=== PATIENT | female | born 1955 | race Caucasian/White ===

== ENCOUNTER 2021-08-20 05:46 | Inpatient (IN) ==
--- NOTE | 2021-07-18 15:32 | PAT Medication Instructions ---
Medication Instructions Date of Service July 18, 2021 Home Medications Elderberry Extract Otc 1 tab PO QPM acetaminophen 325 mg capsule (Tylenol) 650 mg PO BID PRN apixaban 5 mg tablet (Eliquis) 5 mg PO BID carvedilol 3.125 mg tablet 3.125 mg PO BID cholecalciferol (vitamin D3) 125 mcg (5,000 unit) tablet (Vitamin D3) 125 mcg PO QAM diphenhydramine HCl 25 mg tablet (Benadryl Allergy) 25 mg PO DIRECTED PRN fluticasone propionate 50 mcg/actuation nasal spray,suspension 1 spray INTRANASAL Q12H PRN levothyroxine 112 mcg capsule 112 mcg PO QAM lisinopril 10 mg tablet 10 mg PO QAM lisinopril 20 mg-hydrochlorothiazide 25 mg tablet 1 tab PO QAM multivitamin 1 tab PO QPM pantoprazole 20 mg tablet,delayed release 40 mg PO QAM potassium chloride 10 mEq tablet,extended release 10 meq PO 3XWK ASK your prescriber and surgeon apixaban 5 mg tablet (Eliquis) 5 mg PO BID (in order for spinal anesthesia, apixaban/eliquis needs to be stopped 72 hours/3 days before surgery. Please check if okay with doctor that prescribes this to you) STOP taking 2 weeks before surgery (or as soon as possible if surgery is within 2 weeks) Elderberry Extract Otc 1 tab PO QPM DO NOT take the morning of surgery cholecalciferol (vitamin D3) 125 mcg (5,000 unit) tablet (Vitamin D3) 125 mcg PO QAM diphenhydramine HCl 25 mg tablet (Benadryl Allergy) 25 mg PO DIRECTED PRN lisinopril 10 mg tablet 10 mg PO QAM lisinopril 20 mg-hydrochlorothiazide 25 mg tablet 1 tab PO QAM potassium chloride 10 mEq tablet,extended release 10 meq PO 3XWK Take morning of surgery With a small sip of water, OTHERWISE NOTHING TO EAT OR DRINK AFTER MIDNIGHT: acetaminophen 325 mg capsule (Tylenol) 650 mg PO BID PRN (okay to take up to 4 hours prior to surgery if needed) carvedilol 3.125 mg tablet 3.125 mg PO BID fluticasone propionate 50 mcg/actuation nasal spray,suspension 1 spray INTRANASAL Q12H PRN (if needed) levothyroxine 112 mcg capsule 112 mcg PO QAM pantoprazole 20 mg tablet,delayed release 40 mg PO QAM Take evening before surgery acetaminophen 325 mg capsule (Tylenol) 650 mg PO BID PRN (if needed) carvedilol 3.125 mg tablet 3.125 mg PO BID diphenhydramine HCl 25 mg tablet (Benadryl Allergy) 25 mg PO DIRECTED PRN (if needed) fluticasone propionate 50 mcg/actuation nasal spray,suspension 1 spray INTRANASAL Q12H PRN (if needed) multivitamin 1 tab PO QPM Other Notes If you have any questions please call us at [phone] or [phone] or [phone] or [phone]
--- NOTE | 2021-07-22 13:04 | Anesthesiology Consultation ---
Date of Service July 22, 2021 History Surgery Operation Date: 08/20/21 08:05 Proposed Procedures p Left Total Knee Arthroplasty - Chetan Rivera DO Height/Weight Height: 5 ft 4 in Weight: 106.594 kg Allergies Allergy/AdvReac Type Severity Reaction Status Date / Time egg Allergy Severe Headache Verified 07/17/21 16:10 beet Allergy Unknown UNKNOWN-ALLERGY Verified 07/17/21 16:12 TESTING fish derived Allergy Unknown UNKNOWN Verified 07/17/21 16:12 -ALLERGY TESTING moxifloxacin [From Avelox] Allergy Unknown Hives Verified 07/17/21 16:05 orange Allergy Unknown Unknown-ALLERGY Verified 07/17/21 16:12 TESTING Penicillins Allergy Unknown A Verified 07/17/21 16:06 CHILD-UNKNOWN morphine AdvReac Severe NAUSEA AND Verified 07/17/21 16:12 VOMITING Sulfa (Sulfonamide AdvReac Unknown NAUSEA-GI Verified 07/17/21 16:06 Antibiotics) UPSET Medications Home Medications Medication Instructions Recorded Confirmed Last Taken Elderberry Extract Otc 1 tab PO QPM 07/17/21 07/17/21 Unknown acetaminophen 325 mg capsule 650 mg PO BID PRN 07/17/21 07/17/21 Unknown (Tylenol) apixaban 5 mg tablet (Eliquis) 5 mg PO BID 07/17/21 07/17/21 Unknown carvedilol 3.125 mg tablet 3.125 mg PO BID 07/17/21 07/17/21 Unknown cholecalciferol (vitamin D3) 125 125 mcg PO QAM 07/17/21 07/17/21 Unknown mcg (5,000 unit) tablet (Vitamin D3) diphenhydramine HCl 25 mg tablet 25 mg PO DIRECTED PRN 07/17/21 07/17/21 Unknown (Benadryl Allergy) fluticasone propionate 50 1 spray INTRANASAL Q12H PRN 07/17/21 07/17/21 Unknown mcg/actuation nasal spray,suspension levothyroxine 112 mcg capsule 112 mcg PO QAM 07/17/21 07/17/21 Unknown lisinopril 10 mg tablet 10 mg PO QAM 07/17/21 07/17/21 Unknown lisinopril 20 1 tab PO QAM 07/17/21 07/17/21 Unknown mg-hydrochlorothiazide 25 mg tablet multivitamin 1 tab PO QPM 07/17/21 07/17/21 Unknown pantoprazole 20 mg tablet,delayed 40 mg PO QAM 07/17/21 07/17/21 Unknown release potassium chloride 10 mEq 10 meq PO 3XWK 07/17/21 07/17/21 Unknown tablet,extended release Past Medical History Medical History Anxiety Atrial fibrillation ON ELIQUIS-F/U DR [facility] Depression GERD (gastroesophageal reflux disease) Hiatal hernia Hypertension Hypothyroidism Patient denies h/o stroke, seizures, heart attack, heart failure, DM, blood clots or blood transfusions. Past Family History Family History Mother Family history of diabetes mellitus Brother Family history of diabetes mellitus Brother Family history of diabetes mellitus Brother Family history of diabetes mellitus Past Surgical History Surgical History History of section X 2 History of cholecystectomy History of colonoscopy 2020 History of esophagogastroduodenoscopy (EGD) History of hysterectomy OVARIES REMAINED History of knee surgery LEFT History of lung surgery NODULES-DX'D SARCOIDOSIS Hx of oophorectomy LEFT Nausea and vomiting after administration of anesthetic agent SLOW TO WAKE UP Status post blepharoplasty of both eyes Social History Smoking Status: Never smoker Do You Dip or Chew Tobacco: No Hx Alcohol Use: No Hx Substance Use: No Review of Systems Patient denies chest pain, shortness of breath, dyspnea on exertion, snoring, witnessed apneas, reflux, fever, chills, cough, wheezing, or palpitations. Physical Exam Vital Signs Vitals BP P TEMP SP02 % on RA RESP Physical Full cervical extension range of motion without pain Full TMJ range of motion TMD __ finger breaths Mallampati Score ___ Dentition: intact, Lungs: normal respiratory effort. Clear throughout to auscultation, no adventitious breath sounds Cardiac: regular rate and rhythm, no murmurs noted Carotid arteries: negative bruit bilat Extremities: no distal extremity edema
--- NOTE | 2021-07-22 13:26 | Anesthesiology Consultation ---
Date of Service July 22, 2021 Assessment & Plan (1) Encounter for pre-operative examination: - COVID screening: Per assessment on 07/22: No known COVID-19 positive contacts or current COVID-19 related symptoms. Travel screen negative. Patient [place]. Surgeon arranging preop COVID testing. Awaiting results. - Cardiology office visit (06/05/21): "Patient referred back to our office for chronic atrial fibrillation. She is not anticoagulated (has been reluctant to start a blood thinner).. Le remains in atrial fibrillation with a controlled ventricular response by ECG in the office today. She is asymptomatic. Her CHADS-VASC score is 2 for age 65 and hypertension. Oral anticoagulation is therefore warranted and strongly recommended for stroke risk reduction. She has been very reluctant to start OAC in the past. We discussed the risks and benefits again in detail today. She is willing to try Eliquis 5 mg twice daily.. If she remains compliant with oral anticoagulation, we could consider cardioversion at some point. We will consider this at a later date. Continue carvedilol for rate control.. Of note, she is to have knee surgery in August proceed from a cardiac standpoint. The Eliquis can be held 48- 72 hours prior to the operation." Patient subsequently seen at [facility] 07/22/21. She was advised to hold Eliquis 72 hours prior to surgery in order for spinal anesthesia. Patient voiced understanding. - Anxious: Does not want to hear anything perioperatively. Patient requests deeper sedation if possible.* Chart Review Chart Review: Acceptable Risk for Surgery and Patient seen in Pre Admission Testing Teaching & Discussion Pre-Anesthesia Teaching/Discussion Notes: Instructed NPO after midnight before surgery,except medications with 15 cc of water. Medication instructions provided according to the [facility] guidelines. History Surgery Operation Date: 08/20/21 08:05 Proposed Procedures p Left Total Knee Arthroplasty - Chetan Rivera DO Height/Weight Height: 5 ft 4 in Weight: 110 kg Allergies Allergy/AdvReac Type Severity Reaction Status Date / Time beet Allergy Unknown Per Verified 07/22/21 13:20 allergy testing fish derived Allergy Unknown Per Verified 07/22/21 13:20 allergy testing moxifloxacin [From Avelox] Allergy Unknown Hives Verified 07/17/21 16:05 orange Allergy Unknown Per Verified 07/22/21 13:20 allergy testing Penicillins Allergy Unknown As child, Verified 07/22/21 13:20 unknown reaction egg AdvReac Severe Headache Verified 07/22/21 13:20 morphine AdvReac Severe N/V Verified 07/22/21 13:20 Sulfa (Sulfonamide AdvReac Unknown Nausea, GI Verified 07/22/21 13:20 Antibiotics) upset Medications Home Medications Medication Instructions Recorded Confirmed Last Taken Elderberry Extract Otc 1 tab PO QPM 07/17/21 07/17/21 Unknown acetaminophen 325 mg capsule 650 mg PO BID PRN 07/17/21 07/17/21 Unknown (Tylenol) apixaban 5 mg tablet (Eliquis) 5 mg PO BID 07/17/21 07/17/21 Unknown carvedilol 3.125 mg tablet 3.125 mg PO BID 07/17/21 07/17/21 Unknown cholecalciferol (vitamin D3) 125 125 mcg PO QAM 07/17/21 07/17/21 Unknown mcg (5,000 unit) tablet (Vitamin D3) diphenhydramine HCl 25 mg tablet 25 mg PO DIRECTED PRN 07/17/21 07/17/21 Unknown (Benadryl Allergy) fluticasone propionate 50 1 spray INTRANASAL Q12H PRN 07/17/21 07/17/21 Unknown mcg/actuation nasal spray,suspension levothyroxine 112 mcg capsule 112 mcg PO QAM 07/17/21 07/17/21 Unknown lisinopril 10 mg tablet 10 mg PO QAM 07/17/21 07/17/21 Unknown lisinopril 20 1 tab PO QAM 07/17/21 07/17/21 Unknown mg-hydrochlorothiazide 25 mg tablet multivitamin 1 tab PO QPM 07/17/21 07/17/21 Unknown pantoprazole 20 mg tablet,delayed 40 mg PO QAM 07/17/21 07/17/21 Unknown release potassium chloride 10 mEq 10 meq PO 3XWK 07/17/21 07/17/21 Unknown tablet,extended release Past Medical History Medical History Anxiety Atrial fibrillation on Eliquis Follows with Dr. Ferreira ([facility]) Depression GERD (gastroesophageal reflux disease) Controlled Hiatal hernia Hypertension Hypothyroidism Sarcoidosis Pt reports no evidence of active disease, incidental finding Exercise / Class Metabolic Activity III < 4 Walking/Shop/Light housework Past Family History Family History Mother Family history of diabetes mellitus Brother Family history of diabetes mellitus Brother Family history of diabetes mellitus Brother Family history of diabetes mellitus Past Surgical History Surgical History History of section x2 History of cholecystectomy History of colonoscopy History of esophagogastroduodenoscopy (EGD) History of hysterectomy History of knee surgery LEFT History of lung surgery NODULES-DX'D SARCOIDOSIS Hx of oophorectomy LEFT Status post blepharoplasty of both eyes Past Anesthesia History No Family Hx of Anesthesia Complications and Other ("slow to wake") History of PONV History of PONV (No issues when most recent colonoscopy done*) and Hx of Motion Sickness Social History Smoking Status: Never smoker Do You Dip or Chew Tobacco: No Hx Alcohol Use: No Hx Substance Use: No Review of Systems Patient denies chest pain, shortness of breath, fever, chills, cough, wheezing, palpitations. Physical Exam Vital Signs VITALS BP 147/93 P 96 TEMP 98.3 SP02 96%RA RESP 18 PHYSICAL Full cervical extension range of motion. Full TMJ range of motion. TMD 3.5 finger breaths Mallampati Score 3 Dentition: upper partial Lungs: clear throughout to auscultation Cardiac: regular rate, irregular rhythm, no murmurs noted Spine: normal Carotid arteries: negative bruit Extremities: no edema Lab Results Anesthesia Preop Results Results Anesthesia Widget: WBC 8.60 K/uL (4.8-10.8) 07/22/21 Hgb 17.1 g/dL (12.0-16.0) H 07/22/21 Hct 48.7 % (37-47) H 07/22/21 Plt 164 K/uL (130-400) 07/22/21 PT 12.4 Seconds (9.0-12.0) H 07/22/21 PTT 31.0 Seconds (21.0-31.0) 07/22/21 INR 1.2 (0.9-1.1) H 07/22/21 HA1c 5.5 % (4.5-5.6) 07/22/21 Urine Color Yellow 07/22/21 Urine Appearance Clear (Clear) 07/22/21 Urine pH 7.5 (4.5-7.5) 07/22/21 Urine Specific [place] 1.011 (1.000-1.030) 07/22/21 Urine Protein Negative (Negative) 07/22/21 Urine Glucose (UA) Negative (Negative) 07/22/21 Urine Ketones Negative (Negative) 07/22/21 Urine Blood Negative (Negative) 07/22/21 Urine Nitrite Negative (Negative) 07/22/21 Urine Bilirubin Negative (Negative) 07/22/21 Urine Urobilinogen Negative (Negative) 07/22/21 Urine Leukocyte Esterase Negative (Negative) 07/22/21 Blood Type O Positive 07/22/21 Antibody Screen NEGATIVE 07/22/21 Testing Laboratory Results *Mildly elevated PT/INR > pt taking Eliquis 07/09/21 SODIUM 137 POTASSIUM 3.6 CHLORIDE 100 CO2 31.9 BUN 7.6 CREATININE 0.76 GLUCOSE 105 Electrocardiogram Date: 06/05/21 A. fib at 94bpm. Old anterior infarct. Chest X-Ray Date: 07/22/21 Findings: + NAD Echocardiogram Date: 05/26/18 EF 56%. Borderline LVH. No regional motion abnormality. Degenerative mitral and aortic valve disease without significant stenosis or regurgitation. Atrial fibrillation. LAE. IVC dilation consistent with volume overload.
--- NOTE | 2021-08-04 08:45 | History & Physical Report ---
Date of Service August 04, 2021 date of surgery: 08/20/21 Procedure: Left Total Knee Arthroplasty Surgeon: Chetan Rivera Assessment & Plan (1) Arthritis of knee, left: Plan: Further care discussed with patient and at this point in time has failed conservative measures and would like to proceed with a left total knee replacement. Plan on discharge will be home with home health physical therapy. DVT prophylaxiswith TEDs, SCDs and will resume her Eliquis post op. Patient will have follow up appointment in our office two weeks post op for staple/suture removal and re-evaluation. Patient otherwise has no other questions or concerns. will need cardiac clearance prior to her surgery. The risks and benefits have been discussed including, but not limited to, risk of infection, nerve injury, stiffness, loss of motion, failure to improve, etc. Reasonable outcomes and options of treatment were discussed. An explanation of appropriate alternatives to the procedure that may be advantageous were discussed and their risks and benefits, as well as the risks and benefits of not proceeding with treatment. I offered to answer any additional inquiries concerning the treatment involved. All the patient's questions were answered. The patient is agreeable, understanding of the treatment plan and alternatives, and wishes to proceed with the treatment plan. History of Present Illness Chief Complaint: left knee pain Primary Care Provider: Juany Catalan MD Le is a 66 year old female who complains of left knee pain, presents for pre-op evaluation prior to a left total knee replacement by Dr Rivera at [facility]. she complains of pain, crepitus, decreased range of motion, instability and stiffness in her left knee. Currently the patient states that the symptoms are moderate-severe and rated as 8/10. The pain is described as aching, sharp and throbbing. Her symptoms are aggravated by ascending stairs, daily activities, first steps while awake walking. she is unable to take NSAIDs due to being on anticoagulants. she has been treated with previous visco and cortisone injections in the past without much relief. Allergies Allergy/AdvReac Type Severity Reaction Status Date / Time beet Allergy Unknown Per Verified 07/22/21 13:20 allergy testing fish derived Allergy Unknown Per Verified 07/22/21 13:20 allergy testing moxifloxacin [From Avelox] Allergy Unknown Hives Verified 07/17/21 16:05 orange Allergy Unknown Per Verified 07/22/21 13:20 allergy testing Penicillins Allergy Unknown As child, Verified 07/22/21 13:20 unknown reaction egg AdvReac Severe Headache Verified 07/22/21 13:20 morphine AdvReac Severe N/V Verified 07/22/21 13:20 Sulfa (Sulfonamide AdvReac Unknown Nausea, GI Verified 07/22/21 13:20 Antibiotics) upset Home Medications Medication Instructions Recorded Confirmed Type Elderberry Extract Otc 1 tab PO QPM 07/17/21 07/17/21 History acetaminophen 325 mg capsule 650 mg PO BID PRN 07/17/21 07/17/21 History (Tylenol) apixaban 5 mg tablet (Eliquis) 5 mg PO BID 07/17/21 07/17/21 History carvedilol 3.125 mg tablet 3.125 mg PO BID 07/17/21 07/17/21 History cholecalciferol (vitamin D3) 125 125 mcg PO QAM 07/17/21 07/17/21 History mcg (5,000 unit) tablet (Vitamin D3) diphenhydramine HCl 25 mg tablet 25 mg PO DIRECTED PRN 07/17/21 07/17/21 History (Benadryl Allergy) fluticasone propionate 50 1 spray INTRANASAL Q12H PRN 07/17/21 07/17/21 History mcg/actuation nasal spray,suspension levothyroxine 112 mcg capsule 112 mcg PO QAM 07/17/21 07/17/21 History lisinopril 10 mg tablet 10 mg PO QAM 07/17/21 07/17/21 History lisinopril 20 1 tab PO QAM 07/17/21 07/17/21 History mg-hydrochlorothiazide 25 mg tablet multivitamin 1 tab PO QPM 07/17/21 07/17/21 History pantoprazole 20 mg tablet,delayed 40 mg PO QAM 07/17/21 07/17/21 History release potassium chloride 10 mEq 10 meq PO 3XWK 07/17/21 07/17/21 History tablet,extended release Past Med/Surg History Medical History Anxiety Atrial fibrillation on Eliquis Follows with Dr. Ferreira ([facility]) Depression GERD (gastroesophageal reflux disease) Controlled Hiatal hernia Hypertension Hypothyroidism Sarcoidosis Pt reports no evidence of active disease, incidental finding Surgical History History of section x2 History of cholecystectomy History of colonoscopy History of esophagogastroduodenoscopy (EGD) History of hysterectomy History of knee surgery LEFT History of lung surgery NODULES-DX'D SARCOIDOSIS Hx of oophorectomy LEFT Status post blepharoplasty of both eyes Family History Mother Family history of diabetes mellitus Brother Family history of diabetes mellitus Brother Family history of diabetes mellitus Brother Family history of diabetes mellitus Social History Smoking Status: Never smoker Second Hand Exposure: Yes (FATHER SMOKED); Hx Alcohol Use: No Hx Substance Use: No Preferred Language: Macedonian Communication Ability: Effective 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 Required: No Beliefs That Will Affect Care: None Current Living Situation: Spouse current occupational status: retired Feels Safe at Home: Yes Assistive Devices: Cane, Denture - Upper and Glasses Review of Systems Review of Systems: All systems reviewed & are unremarkable except as noted in HPI & below Constitutional: no fever, no chills and no sweats Respiratory: no cough and no dyspnea Cardiovascular: no chest pain, no dyspnea and no orthopnea Gastrointestinal: no abdominal pain, no nausea and no vomiting Musculoskeletal: as per Subjective / HPI Physical Exam Physical Exam: HT: 5ft 4in WT: 110kg BP: 126/72 Constitutional: WD/WN, vitals as above no acute distress Respiratory: normal respiratory effort, lungs clear to auscultation no respiratory distress, no labored breathing and does not use accessory muscles Cardiovascular: Rate/Rhythm: + irregularly irregular Gastrointestinal (Abdomen): normal bowel sounds, soft, nontender, no hepatosplenomegaly Musculoskeletal: Knee: + knee abnormal to inspection (LEFT KNEE: ), + effusion (+1 effusion), + limited ROM of knee (ROM 0/3/110), + knee ROM with crepitation, + joint line tenderness (medial joint line) and + Gm's sign positive; no deformity, no skin erythema, no ecchymosis, no valgus laxity, no varus laxity, anterior drawer test negative, Irish's sign negative and pivot shift test negative Results & Data Results & Data ([facility]) Diagnostic Findings Left Knee X-ray: left knee series confirm advanced degenerative changes to the left knee, greatest medial compartments and patellofemoral joint, showing joint space narrowing, osteophyte formation and subchondral sclerosis. no acute bony pathology noted.
[2021-08-20] MEDS ORDERED: FAMOTIDINE 20 MG TAB PO SCH (06:00)
[2021-08-20] MEDS ORDERED: GABAPENTIN 300 MG CAP PO SCH (06:00)
[2021-08-20] MEDS ORDERED: TRANEXAMIC ACID 1,000 MG **IV Pre-op IV SCH (06:00)
[2021-08-20] MEDS ORDERED: TRANEXAMIC ACID 1,000 MG **IV Intra-op IV SCH (06:00)
[2021-08-20] MEDS ORDERED: ROPIVACAINE 0.5% HCL/PF 150 MG, BUPIVACAINE 0.75% MPF 20 ML, EPINEPHrine 30MG/30ML (OR ... INSTIL SCH (06:00)
[2021-08-20] MEDS ORDERED: dexAMETHasone 4 MG TAB PO SCH (06:00)
[2021-08-20] MEDS ORDERED: ACETAMINOPHEN 500 MG TAB PO SCH (06:00)
[2021-08-20] MEDS ORDERED: METOCLOPRAMIDE HCL 10 MG TABLET PO SCH (06:00)
[2021-08-20] MEDS ORDERED: VANCOMYCIN HCL 1,750 MG in SODIUM CHLORIDE 0.9% 500 ML IV SCH (06:00)
[2021-08-20] MEDS ORDERED: LR 500ML BOLUS, THEN 15ML/HR IV SCH (06:00)
[2021-08-20] MEDS ORDERED: PROPOFOL IV EMULSION 10 MG/ML 20 ML VIAL IV ONE (06:30)
[2021-08-20] MEDS ORDERED: BUPIVACAINE 0.25% 30 ML VIAL ONE (06:30)
[2021-08-20] MEDS ORDERED: ONDANSETRON INJ 2 MG/ML 2 ML VIAL ONE (06:30)
[2021-08-20] MEDS ORDERED: MIDAZOLAM HCL 1 MG/ML 2ML VIAL ONE (06:30)
[2021-08-20] MEDS ORDERED: fentaNYL citrate 100 MCG/2 ML VIAL ONE (06:30)
[2021-08-20] MEDS ORDERED: BUPIVACAINE 0.5 % 5 MG/1 ML PF 10ML VIAL ONE (06:30)
[2021-08-20] MEDS ORDERED: fentaNYL citrate 100 MCG/2 ML VIAL IV PRN (06:45)
[2021-08-20] MEDS ORDERED: ePHEDrine sulfate 50 MG/ML AMP IV PRN (06:45)
[2021-08-20] MEDS ORDERED: ONDANSETRON INJ 2 MG/ML 2 ML VIAL IV PRN ×2 (06:45→12:42)
[2021-08-20] MEDS ORDERED: ATROPINE SULFATE 0.1 MG/ML 10ML SYR IV PRN (06:45)
--- NOTE | 2021-08-20 07:13 | History & Physical Bridge Note ---
Date of Service August 20, 2021 History & Physical Bridge Note I have examined the patient, reviewed the History & Physical and in the interval since the performance of the History & Physical I have noted the following changes of clinical significance: no changes noted
[2021-08-20] MEDS ORDERED: ORTHO JOINT ANESTHETIC ONE (07:24)
--- NOTE | 2021-08-20 09:47 | Operative Report ---
Post Operative Report Pre & Post Diagnosis Operation Date: 08/20/21 08:10 Pre-Op Diagnosis: Left Knee Osteoarthritis Post-Op Diagnosis: Left Knee Osteoarthritis I identified the patient and participated in the time-out.: Yes Procedure Operation Date: 08/20/21 08:10 Actual Procedures p Left Total Knee Arthroplasty(Left) utilizing [employer] journey 2 patient matched total knee arthroplasty size femur 6 tibia for polynine patella 29 oval Chetan Rivera DO Surgeon Chetan Rivera DO Health Occupations Teacher SIVA Ying Estimated Blood Loss 5 Findings Consistent with Post-Op Diagnosis Patient presents with severe end-stage tricompartmental degenerative joint disease left knee with varus alignment 10 degree flexion contracture eburnated [id number] subchondral sclerosis marginal osteophytes moderate to large effusion Specimens Bone and cartilage Drains Medium bore Hemovac Anesthesia Type MAC Spinal Regional Complications none Disposition Accompanied Patient To Recovery: No Disposition: Recovery Room Indications Patient presents with severe end-stage tricompartmental DJD no response to conservative management occluding physical therapy anti-inflammatories relative rest activity modification corticosteroid injection viscosupplementation the above intraoperative findings were noted Description of Procedure After proper prepping and draping of the left lower extremity anterior midline incision was made over the region of the extensor extensor mechanism after meticulous hemostasis was obtained and maintained in subcutaneous tissues a medial parapatellar incision was made The patella was subluxed lateralward the medial lateral gutter were cleaned from any hypertrophic synovitis and scar tissue of the distal femoral block was placed and the distal femoral osteotomy cut was made subsequently the chamfers anterior and posterior osteotomy cuts were made utilizing the 4-in-1 block the tibia was subsequently subluxed anteriorward medial and ateral meniscal remnants were excised in their entirety remnants of the anterior and posterior cruciate ligaments were excised in their entirety excellent exposure of the proximal tibia was obtained the tibial osteotomy guide was placed on the proximal tibial osteotomy cut was made once again the knee was irrigated with copious amounts of sterile saline solution the patella was subsequently everted lateralward thickened scar tissue around the patella was removed the patella was subsequently cut utilizing a freehand technique and was drilled prepared for final preparation and placement of patella socially flexion-extension gaps were checked and the equal and symmetric trials were placed to the appropriate femoral and tibial trials with poly-spacer being placed for equal flexion and extension gaps and full range of motion including extension to 0 and flexion to 140 the trial components after having been taken to recovery range of motion was subsequently removed meticulous hemostasis was obtained and maintained subsequently a knee block injection of joint cocktail including ropivacaine 0.5% 150 mg. Bupivacaine 0.5% epinephrine 1-200,030 mL's toradol 30 mg dexamethasone 4 mg ketamine 10 mg clonidine 100 micrograms normal saline solution 30 mg was infiltrated into the soft tissues of the posterior knee medial lateral gutters and periosteal synovium special attention was paid to protect neurovascular structures at all times subsequently trial components having been removed the knee was irrigated with sterile saline solution. debris was removed the proximal tibia was subsequently prepared and was made ready for the placement of the tibial component tibial component was also cemented and tamped into position the femoral component was subsequently placed and cemented in the position the patellar component was subsequently cemented in position because hemostasis once again obtained and maintained wound having been thoroughly irrigated with debridement and debridement lavage was performed as well as a medial parapatellar incision closed with #1 Vicryl in interrupted fashion subcutaneous was closed with #2 Vicryl skin was closed with skin clips. PA-C was necessary for prepping and drapping as well as wound closure of deep fascia Sub cutaneous tissue and skin and was necessary for the case. A sterile compressive dressing was placed patient was taken to recovery in stable condition of report dictated by Miguel I attest to the content of the Intraoperative Record and any orders documented therein. Any exceptions are noted below.Due to the complex nature of the procedure, the entire surgery was performed with the operational assistance of SIVA Ying The recycling assistant, under direct supervision, was involved in the actual performance of all aspects of the surgical procedure including hemostasis, tissue retraction and incision, instrument management, patient positioning, and wound closure. I attest to the content of the Intraoperative Record and any orders documented therein. Any exceptions are noted below.
--- NOTE | 2021-08-20 10:53 | XRay Report ---
XR knee LT 1 or 2V routine HISTORY: 66 years-old Female Surgical Post Op [left knee total joint arthroplasty COMPARISON: None TECHNIQUE: 2 views of the left knee FINDINGS: Left knee total joint arthroplasty with patellar resurfacing. Arterial calcifications. Surgical drain age catheter is noted. Expected postoperative soft tissue swelling with deep tissue air. No acute fra cture or unexpected opaque foreign body. IMPRESSION: Total joint arthroplasty with expected postoperative changes. ACT 112: Negative or not required by law. The above report was generated using voice recognition software. It may contain grammatical, syntax o r spelling errors. Electronically signed by: Dallas Moulton M.D. 08/20/2021 10:52 AM
--- NOTE | 2021-08-20 12:04 | Anesthesiology Progress Note ---
Date of Service August 20, 2021 Anesthesia Post Procedure Vital Signs Vital Signs: Temp Pulse Pulse Resp BP BP Pulse Ox 08/20/21 11:55 93 H 15 115/66 97 08/20/21 11:45 89 18 116/78 96 08/20/21 11:35 92 H 16 122/83 95 08/20/21 11:25 85 11 L 110/82 94 08/20/21 11:15 90 16 130/74 91 08/20/21 11:05 93 H 15 132/74 94 08/20/21 10:55 87 16 137/78 92 08/20/21 10:45 83 17 155/90 H 97 08/20/21 10:35 91 H 19 140/113 H 99 08/20/21 10:28 37.0 C 93 H 22 146/104 H 100 08/20/21 06:35 36.7 C 80 18 164/112 H 94 Transfer of Care Handoff Completed per policy Notes Mental Status: alert / awake / arousable and participated in evaluation Patient Amnestic to Procedure: Yes Nausea / Vomiting: adequately controlled Pain: adequately controlled Airway Patency, RR, SpO2: stable & adequate BP & HR: stable & adequate Hydration State: stable & adequate Neuraxial Anesthesia: was administered and sensory block is resolving Anesthetic Complications: no major complications apparent and Pt Satisfied with anesthetic care
[2021-08-20] MEDS ORDERED: POTASSIUM CHLORIDE 10 MEQ TABCR PO SCH (12:42)
[2021-08-20] MEDS ORDERED: METOCLOPRAMIDE HCL INJ 5 MG/ML 2 ML VIAL IV PRN (12:42)
[2021-08-20] MEDS ORDERED: NALOXONE HCL 0.4 MG/1 ML VIAL/CARP IV PRN (12:42)
[2021-08-20] MEDS ORDERED: oxyCODONE HCL IR 5 MG TAB (IMMEDIATE RELEASE) PO PRN (12:42)
[2021-08-20] MEDS ORDERED: FLUTICASONE PROPIONATE NA SPR 16 GM BTL NAE PRN (12:42)
[2021-08-20] MEDS ORDERED: bisacodyL 10 MG SUPP PR PRN (12:42)
[2021-08-20] MEDS ORDERED: diphenhydrAMINE Capsule 25 MG CAP PO PRN (12:42)
[2021-08-20] MEDS ORDERED: HYDROmorphone INJ 1 MG/ML SYRINGE IV PRN (12:42)
[2021-08-20] MEDS ORDERED: MAGNESIUM HYDROXIDE SUSP 30 ML UDC PO PRN (12:42)
[2021-08-20] MEDS: SODIUM CHLORIDE 0.9% 1000ML 1,000 ML IV SCH (15:31)
[2021-08-20] MEDS: KETOROLAC TROMETHAMINE 15 MG/ML VIAL IV SCH ×2 (15:44→20:57)
[2021-08-20] MEDS: ACETAMINOPHEN 500 MG TAB PO SCH ×2 (16:00→22:18)
[2021-08-20] MEDS: CLINDAMYCIN 600 MG in DEXTROSE 5% 50 ML IV SCH (16:57)
[2021-08-20] MEDS: DOCUSATE SODIUM 100 MG CAP PO SCH (20:57)
[2021-08-20] MEDS: carvediloL 3.125 MG TAB PO SCH (20:57)
[2021-08-20] MEDS ORDERED: SENNA 8.6 MG TAB PO SCH (21:00)
[2021-08-21] MEDS: CLINDAMYCIN 600 MG in DEXTROSE 5% 50 ML IV SCH (00:26)
[2021-08-21] MEDS: SODIUM CHLORIDE 0.9% 1000ML 1,000 ML IV SCH (02:08)
[2021-08-21] MEDS: KETOROLAC TROMETHAMINE 15 MG/ML VIAL IV SCH ×3 (03:06→14:02)
[2021-08-21] MEDS: ACETAMINOPHEN 500 MG TAB PO SCH ×2 (05:36→14:02)
[2021-08-21] MEDS ORDERED: LEVOTHYROXINE SODIUM 112 MCG TABLET PO SCH (06:30)
--- NOTE | 2021-08-21 06:34 | Orthopedic Progress Note ---
Date of Service August 21, 2021 Assessment & Plan (1) History of total left knee replacement: Plan: POD #1 s/p Left TKA pt/ot dvt proph with VARUN/SCD/resume Eliquis today plan for d/c home with home health PT if tolerates PT well today Admission and Anticipated Discharge Date Admission Date: August 20, 2021 Subjective POD #1 s/p Left TKA Review of Systems Constitutional: no fever, no chills and no sweats Respiratory: no cough and no dyspnea Cardiovascular: no chest pain and no dyspnea Gastrointestinal: no abdominal pain, no nausea and no vomiting Physical Exam Physical Exam: Vital Signs Temp 36.4 C L 08/21/21 03:03 Pulse 71 08/21/21 03:03 Resp 18 08/21/21 03:03 BP 139/88 08/21/21 03:03 Pulse Ox 97 08/21/21 03:03 Intake & Output 08/20/21 08/20/21 08/21/21 06:59 18:59 06:59 Intake Total 2289 / 4033.000 1744.000 / 4033.00 0 Output Total 610 / 1460 850 / 1460 Balance 1679 / 2573.000 894.000 / 2573.000 Weight 110.3 kg 110.3 kg 114.3 kg Intake: IV 589 / 6892.680 1960.000 / 1983.00 0 Clindamycin 60 0 mg In Dextrose 54 / 108 54 / 108 5% 50 ml @ 100 mls/hr IV Q8H T[facility] Rx#:[id number] Lactated Ringe r's 1,000 ml @ 15 0 / 0 mls/hr IV .Q24 H [facility] Rx#: [id number] Sodium Chlorid e 0.9% 1000ML 1, 1340.000 / 1340.00 0 000 ml @ 100 m ls/hr IV .Q10H T[facility] Rx#:[id number] Vancomycin HCl 1,750 mg In 535 / 535 Sodium Chlorid e 0.9% 500 ml @ 200 mls/hr IV PREOP TYREL Rx#: [id number] IV Perioperative 1700 / 1700 Oral 350 / 350 Output: Urine 275 / 800 525 / 800 Emesis 55 / 55 Estimated Blood Loss 5 / 5 Drain Output 275 / 600 325 / 600 Left Knee Hemo vac 275 / 600 325 / 600 Other: # Unmeasured Voi ds 1 # Emeses 1 Weight Measureme nt Method Standing Scale Built in [facility] Musculoskeletal: Left Leg: NVDI, calf SNT, negative magalys sign. DP palpable, able to wiggle toes/ankle movement without difficulty. dressing clean dry and intact. Results & Data ([facility]) Vital Signs (Past 12 Hours) Vital Signs Temp Pulse Pulse Resp BP Pulse Ox 08/21/21 03:03 36.4 C L 71 18 139/88 97 08/20/21 22:12 36.5 C 90 18 115/73 97 08/20/21 20:50 90 158/103 H 08/20/21 19:02 36.5 C 96 H 16 116/77 91 Laboratory Results Laboratory Results POC Glucose 136 mg/dl (70-99) H 08/20/21 10:30 SARS-CoV-2, RNA, NAAT NEGATIVE (NEGATIVE) 08/20/21 06:07 Impressions Knee X-Ray 08/20/21 10:27 XR knee LT 1 or 2V routine HISTORY: 66 years-old Female Surgical Post Op [left knee total joint arthroplasty COMPARISON: None TECHNIQUE: 2 views of the left knee FINDINGS: Left knee total joint arthroplasty with patellar resurfacing. Arterial calcifications. Surgical drainage catheter is noted. Expected postoperative soft tissue swelling with deep tissue air. No acute fracture or unexpected opaque foreign body. IMPRESSION: Total joint arthroplasty with expected postoperative changes. ACT 112: Negative or not required by law. The above report was generated using voice recognition software. It may contain grammatical, syntax or spelling errors. Electronically signed by: Dallas Moulton M.D. 08/20/2021 10:52 AM
[2021-08-21 07:13] LABS: Hematocrit (blood only) 37.6 % (37-47); Hemoglobin 13.1 g/dL (12.0-16.0); Mean Corpuscular Hemoglobin 31.6 pg (25-34); Mean Corpuscular Hgb Conc 34.8 g/dL (32-36); Mean Corpuscular Volume 90.8 fL (80-100); Mean Platelet Volume 10.4 fL (7.4-10.4); Platelet Count 167 K/uL (130-400); RDW Coefficient of Variation 12.9 % (11.5-14.5); Red Blood Count 4.14 M/uL (4.2-5.4); White Blood Count 19.48 K/uL (4.8-10.8)
--- NOTE | 2021-08-21 07:34 | Discharge Summary ---
Date of Service date of discharge: August 21, 2021 date of admission: 08/20/21 Admission HPI Per Admitting Provider Le is a 66 year old female who complains of left knee pain, presents for pre-op evaluation prior to a left total knee replacement by Dr Rivera at [facility]. she complains of pain, crepitus, decreased range of motion, instability and stiffness in her left knee. Currently the patient states that the symptoms are moderate-severe and rated as 8/10. The pain is described as aching, sharp and throbbing. Her symptoms are aggravated by ascending stairs, daily activities, first steps while awake walking. she is unable to take NSAIDs due to being on anticoagulants. she has been treated with previous visco and cortisone injections in the past without much relief. Principal Diagnosis left knee arthritis Discharge Exam Vital Signs Temp 36.4 C L 08/21/21 03:03 Pulse 71 08/21/21 03:03 Resp 18 08/21/21 03:03 BP 139/88 08/21/21 03:03 Pulse Ox 97 08/21/21 03:03 Intake & Output 08/20/21 08/20/21 08/21/21 06:59 18:59 06:59 Intake Total 2289 / 4033.000 1744.000 / 4033.000 Output Total 610 / 1460 850 / 1460 Balance 1679 / 2573.000 894.000 / 2573.000 Weight 110.3 kg 110.3 kg 114.3 kg Intake: IV 589 / 6771.257 1939.000 / 1983.000 Clindamycin 600 mg In Dextrose 54 / 108 54 / 108 5% 50 ml @ 100 mls/hr IV Q8H TYREL Rx#:[id number] Lactated Ringer's 1,000 ml @ 15 0 / 0 mls/hr IV .Q24H TYREL Rx#: [id number] Sodium Chloride 0.9% 1000ML 1, 1340.000 / 1340.000 000 ml @ 100 mls/hr IV .Q10H TYREL Rx#:[id number] Vancomycin HCl 1,750 mg In 535 / 535 Sodium Chloride 0.9% 500 ml @ 200 mls/hr IV PREOP TYREL Rx#: [id number] IV Perioperative 1700 / 1700 Oral 350 / 350 Output: Urine 275 / 800 525 / 800 Emesis 55 / 55 Estimated Blood Loss 5 / 5 Drain Output 275 / 600 325 / 600 Left Knee Hemovac 275 / 600 325 / 600 Other: # Unmeasured Voids 1 # Emeses 1 Weight Measurement Method Standing Scale Built in [facility] Constitutional WD/WN, vitals as above no acute distress Respiratory normal respiratory effort, lungs clear to auscultation no respiratory distress, no labored breathing and does not use accessory muscles Cardiovascular Rate/Rhythm: + irregularly irregular Gastrointestinal (Abdomen) normal bowel sounds, soft, nontender, no hepatosplenomegaly Musculoskeletal left knee: NVDI, calf SNT, negative magalys sign. DP palpable, able to wiggle toes/ankle movement without difficulty. RAFAEL dressing clean dry and intact Discharge Data Allergies Allergy/AdvReac Type Severity Reaction Status Date / Time beet Allergy Unknown Per Verified 08/20/21 06:25 allergy testing fish derived Allergy Unknown Per Verified 08/20/21 06:25 allergy testing moxifloxacin [From Avelox] Allergy Unknown Hives Verified 08/20/21 06:25 orange Allergy Unknown Per Verified 08/20/21 06:25 allergy testing Penicillins Allergy Unknown As child, Verified 08/20/21 06:25 unknown reaction shellfish derived Allergy Unknown Per Verified 08/20/21 06:49 Allergy testing egg AdvReac Severe Headache Verified 08/20/21 06:25 morphine AdvReac Severe N/V Verified 08/20/21 06:25 Sulfa (Sulfonamide AdvReac Unknown Nausea, GI Verified 08/20/21 06:25 Antibiotics) upset Procedures Performed Operation Date: 08/20/21 08:10 Actual Procedures p Left Total Knee Arthroplasty(Left) - Chetan Rivera DO Ordered Studies 08/20/21 05:00 US - OR guided needle placemen Routine Hospital Course (1) History of total left knee replacement: POD #1 s/p Left TKA pt/ot dvt proph with VARUN/SCD/resume Eliquis today plan for d/c home with home health PT if tolerates PT well today Total Time Total Time Spent Total Time Spent (In Minutes): 20 Discharge Plan Discharge Items Patient Disposition: Home - Home Health Services Reason For Visit: Left Knee Osteoarthritis Discharge Diagnosis: LEFT TOTAL KNEE REPLACEMENT Activity: Per Instructions section Lifting: Wait until after follow-up appointment Weightbearing Comment: WBAT WITH WALKER Non-emergency contact: Surgeon Call non-emergency contact if: you have any medication questions, your temperature is above 101, your wound has increased redness, your wound has increased drainage and your wound pain has increased Follow-up/Referrals: Juany Catalan MD [Primary Care Provider] - Diet: Regular Addtl Attending Provider Instructions: ACTIVITY RECOMMENDATIONS: SELF CARE INSTRUCTIONS AFTER TOTAL KNEE REPLACEMENT A. You may need to continue a physical therapy program after discharge from the hospital. There are several options available to you. Your doctor will assist you in selecting the best one for you. 1. An out-patient facility 2 to 3 times a week for therapy or home therapy. 2. Continue working on all exercises taught to you in the hospital. Your goals should be to increase bending of your knee to 90 degrees and beyond and to fully straighten your knee. B. You may progress at your own pace from walking with a walker or crutches to a cane; then to no assistive devices. C. Make walking a part of your daily routine. Be up as much as comfortable with rest periods throughout the day. Rest with leg elevation is very important. Use the ice wrap frequently for the first 3-4 weeks. D. There are no restrictions on activities. You may ride in a car, shop, participate in rotary drier and all social activities. E. Wear the long elastic stockings (VARUN hose) 20 hours a day for 2 weeks after surgery. They can be removed several times a day for laundering and for a bath. F. You may shower, no tub baths until cleared by your doctor. SPECIAL CARE INSTRUCTIONS: VERY IMPORTANT TO READ AND REVIEW A. There are a few signs you need to watch for after you are home. Call [facility] if you notice any of the followin. Increased severe knee pain. Some pain is expected especially when you exercise. 2. Increased swelling in your leg or knee; pain or swelling of the calf muscle in either lower leg. 3. Any fluid drainage from the incision. 4. Shortness of breath or chest pain. B. Please call [facility] at if you have any concerns or questions about your operation or recovery. The doctor or his nurse will return your call promptly. C. You must take antibiotics before dental work, bladder, bowel or other surgery. Your doctor will provide you with a permanent care to carry describing this precaution. IMPORTANT: * REMEMBER TO TAKE ASPIRIN, 81 MG, TWICE DAILY FOR 4 WEEKS UNLESS OTHERWISE DIRECTED. THIS IS YOUR BLOOD THINNER. * HIGH RISK PATIENTS MAY BE PRESCRIBED A STRONGER BLOOD THINNER. THIS WILL BE PROVIDED AT DISCHARGE. * CALL IF INCREASED PAIN, REDNESS, DRAINAGE OR FEVER GREATER THAT 101. * WEAR VARUN HOSE 20 HOURS PER DAY FOR 2 WEEKS. * RAFAEL Dressing- This is a large suction dressing covering your incision. This will help pull any excess drainage from the wound and allow your incision to heal properly. You may shower with this if you can keep the unit outside of the shower. If any bleeding or leakage is noted please call your doctor's office. This will remain on your incision for 7 days and then should be removed. This can be done yourself or by the home nursing staff if applicable. The entire unit is disposable once removed. Once removed, keep incision clean and dry. If redness or drainage is noted, please call your surgeon. ONCE RAFAEL IS REMOVED, FOLLOW THESE INSTRUCTIONS: DERMABOND Prineo- This is a mesh tape dressing that is covered with glue. It should remain in place until the incision is properly healed, usually 10-14 days. This dressing is designed to naturally slough off. You may trim the excess mesh tape as it peels off. Incision may be briefly wet in a shower. Dry immediately by blotting with a clean, dry towel. Do not bath or swim until instructed by your doctor. Do not scratch, rub, or pick at the dressing. Do not apply any topical ointments or lotions until dressing is completely removed and/or instructed by your doctor. There may be a small piece of suture material at one end of your incision. Do not pull or trim this. If it is bothersome or catching on clothing, you may cover it with a band-aid. IF INCISION IS LEAKING THROUGH DRESSING, CALL THE OFFICE . FOLLOW UP VISIT: If appointment is not already scheduled: Please call [facility] to make a follow-up appointment for 2 weeks after your surgery at . Pending Studies at Discharge: No Stand-Alone Forms: My [employer], Smoking Cessation Medications and DC Order Prescriptions: New acetaminophen [Tylenol Extra Strength] 500 mg Tablet 1,000 mg PO Q8 21 Days Qty: 126 RF: 0 oxycodone 5 mg Tablet 5 - 10 mg PO Q6H PRN (Reason: pain) Qty: 30 RF: 0 docusate sodium 100 mg Capsule 100 mg PO BID 10 Days Qty: 20 RF: 0 clindamycin HCl 300 mg capsule 300 mg PO TID 7 Days Qty: 21 RF: 0 Continued multivitamin Tablet 1 tab PO QPM RF: 0 potassium chloride 10 mEq Tablet Extended Release 10 meq PO 3XWK RF: 0 carvedilol 3.125 mg Tablet 3.125 mg PO BID RF: 0 pantoprazole [Protonix] 20 mg Tablet,Delayed Release (Dr/Ec) 40 mg PO QAM RF: 0 diphenhydramine HCl [Benadryl Allergy] 25 mg Tablet 25 mg PO DIRECTED PRN (Reason: Congestion) RF: 0 lisinopril 10 mg Tablet 10 mg PO QAM RF: 0 lisinopril-hydrochlorothiazide [Zestoretic] 20-25 mg Tablet 1 tab PO QAM RF: 0 cholecalciferol (vitamin D3) [Vitamin D3] 125 mcg (5,000 unit) Tablet 125 mcg PO QAM RF: 0 levothyroxine 112 mcg Capsule 112 mcg PO QAM RF: 0 Eliquis 5 mg Tablet 5 mg PO BID RF: 0 fluticasone propionate 50 mcg/actuation [place],Suspension 1 spray INTRANASAL Q12H PRN (Reason: Nasal Congestion) RF: 0 Discontinued acetaminophen [Tylenol] 325 mg Capsule 650 mg PO BID PRN (Reason: Pain) RF: 0 Elderberry Extract Otc 1 tab PO QPM RF: 0 Discharge Orders: Discharge Order (Routine); Ordered 08/21/21 Ordered By: Niraj Jasso Admission Data Admit Date/Time: 08/20/21 10:27 Attending Provider: Chetan Rivera Admit Provider: Chetan Rivera Primary Care Provider: Juany Catalan
[2021-08-21 07:44] LABS: BUN Creatinine Ratio 20.3 (10-20); Calcium 9.1 mg/dl (8.5-10.1); Creatinine Clr Calc Pharmacy 116.3 ml/min; Est GFR (African American) 110.7 ml/min; Est GFR (Non-African American) 95.5 ml/min; Potassium 3.9 mmol/L (3.5-5.1)
[2021-08-21] MEDS: DOCUSATE SODIUM 100 MG CAP PO SCH (07:59)
[2021-08-21] MEDS: carvediloL 3.125 MG TAB PO SCH (08:00)
[2021-08-21] MEDS ORDERED: MULTIVITAMIN TAB PO SCH (09:00)
[2021-08-21] MEDS ORDERED: APIXABAN 5 MG TABLET PO SCH (09:00)
[2021-08-21] MEDS ORDERED: LISINOPRIL/HCTZ 20/25MG 1 TAB PO SCH (09:00)
[2021-08-21] MEDS ORDERED: lisinopril 10 MG TAB PO SCH (09:00)
[2021-08-21] MEDS ORDERED: CHOLECALCIFEROL 5,000 UNITS 125 MCG TAB PO SCH (09:00)
== END 2021-08-21 15:26 | disposition home health service (06) | DRG 470 ==
LOC: ASU 05:46 → PACUINP 05:46 → OBSVTOIN 10:27 → 3E 15:39